=== PATIENT | male | born 1980 | race Caucasian/White ===

== ENCOUNTER 2017-07-02 14:36 | Emergency (ER) | payer SELFPAY ==
[~2017-07-02] VITALS: Ht 165.1 cm; Wt 81.8 kg
[2017-07-02 14:39] VITALS: BP 138/81; PULSE 101; TEMP 99
[2017-07-02] MEDS ORDERED: AMOXICILLIN 50500 MG PO (15:16)
[2017-07-02] MEDS ORDERED: ULTRAM 50MG TAB50 MG PO (15:16)
[2017-07-02] MEDS ORDERED: NAPROSYN 2250 MG/TAB PO (15:16)
== END 2017-07-02 15:24 | disposition home or self-care (01) ==
LOC: COL.ER 14:36
DX: K02.9 Dental caries, unspecified (principal); F17.210 Nicotine dependence, cigarettes, uncomplicated